=== PATIENT | male | born 1990 | race Caucasian/White ===

== ENCOUNTER 2017-02-19 23:34 | Emergency (ER) | payer MEDICAID ==
--- NOTE | 2017-02-19 23:52 | CPEKG ---
Heart Rate: 108 RR Interval: 556 P-R Interval: 148 QRSD Interval: 92 QT Interval: 324 QTC Interval: 435 P [place]: 39 QRS [place]: 16 T Wave [place]: 40 EKG Severity - OTHERWISE NORMAL ECG - EKG Impression: SINUS TACHYCARDIA Electronically Signed By: Matteo Kirkland 20-Feb-2017 07:14:39
--- NOTE | 2017-02-19 23:54 | EDPHY ---
H & P Time Seen by Provider: 02/19/17 23:54 HPI/ROS: Chief Complaint: Palpitations, cocaine ingestion HPI: 27-year-old male who ingested cocaine this evening while involved in sexual relations inadvertently. Patient initially had a little bit of chest tightness and palpitations but feels this may have been secondary to anxiety. He has a history of cocaine abuse in the past and recognize the taste but has been clean for several years. He is concerned about relapsing. Currently is feeling anxious and regretful. No chest pain currently. No fevers or chills. No palpitations. No headache. No nausea or vomiting. ROS: 10 point Review of Systems is negative except as noted in the HPI. PMH: Bipolar disorder Medications: None Social History: No smoking, no alcohol, recovering addict Family History: non-contributory Physical Exam: Gen: Awake, Alert, anxious appearing HEENT: Nose: no rhinorrhea Eyes: PERRLA, EOMI Mouth: Moist mucosa Neck: Supple, no JVD Chest: nontender, lungs clear to auscultation Heart: S1, S2 normal, no murmur Abd: Soft, non-tender, no guarding Back: no CVA tenderness, no midline tenderness Ext: no edema, non-tender Skin: no rash Neuro: CN II-XII intact, Sensation grossly intact, Strength 5/5 in bilateral upper and lower extremities - Medical/Surgical History Hx Asthma: No Hx Chronic Respiratory Disease: No Hx Diabetes: No Hx Cardiac Disease: No Hx Renal Disease: No Hx Cirrhosis: No Hx Alcoholism: No Hx HIV/AIDS: No Hx Splenectomy or Spleen Trauma: No Other PMH: obesity. mood disorder - Social History Smoking Status: Never smoked Constitutional: Initial Vital Signs Temperature (C) 36.9 C 02/19/17 23:55 Heart Rate 112 H 02/19/17 23:55 Respiratory Rate 95 H 02/19/17 23:55 Blood Pressure 116/62 02/19/17 23:55 O2 Delivery Mode Room Air Allergies/Adverse Reactions: ziprasidone HCl [From Geodon] Allergy (Intermediate, Verified 04/13/16 10:45) tachycardia ziprasidone mesylate [From Geodon] Allergy (Intermediate, Verified 04/13/16 10: 45) tachycardia Home Medications: Medication Instructions Recorded Amoxicillin/Clavulanate Pot 875 mg PO BID #14 tab 04/13/16 [Augmentin 875Mg] lamoTRIgine [LamICTAL] 100 mg PO 04/13/16 Medical Decision Making - Diagnostics EKG Interpretation: ECG time 11:51 p.m.: Sinus tachycardia with a rate of 108, normal axis, normal intervals, no acute ST or T-wave changes. Impression: Sinus tachycardia ED Course/Re-evaluation: Patient cocaine ingestion with some sinus tachycardia. No ischemic changes. Does not have any chest pain. He is remorseful but otherwise has a benign exam. Will discharge with instructions follow up with primary care physician and cautions regarding further cocaine use. Departure - Departure Disposition: Home, Routine, Self-Care Clinical Impression: Cocaine abuse Condition: Good Instructions: Cocaine Abuse (ED), Anxiety (ED) Additional Instructions: Please continue to avoid cocaine and other substance abuse. Follow up with primary care physician in 2-3 days for for any concerns. Return emergency depart for increasing chest pain, palpitations, difficulty breathing, headache, fainting, or any other concerns. Referrals: NONE *PRIMARY CARE P,. [Primary Care Provider] - As per Instructions Annie Cobb MD [Medical Doctor] - As per Instructions
[2017-02-20 01:04] VITALS: BP 118/74; PULSE 90; RESP 16; TEMP 97.9; O2SAT 96
== END 2017-02-20 01:04 | disposition home or self-care (01) ==
LOC: EEVIPCON 23:34
DX: F14.10 Cocaine abuse, uncomplicated (principal)

== ENCOUNTER 2017-06-26 22:27 | Emergency (ER) | payer MEDICAID ==
[2017-06-26 22:37] VITALS: TEMP 98.4; O2SAT 96
--- NOTE | 2017-06-26 23:00 | EDPHY ---
H & P Stated Complaint: sudden onset of epigastric pain Time Seen by Provider: 06/26/17 22:56 HPI/ROS: Chief Complaint: Chest pain after coughing HPI: 27-year-old male has had upper respiratory symptoms for about a week clipping dry nonproductive cough, runny nose and sore throat. At about 4 o' clock this afternoon he had a coughing fit and then developed sharp pain in his lower central chest. Now it hurts more to sit up. Hurts to cough and take a deep breath. No shortness of breath. No fevers or chills. Cough has been nonproductive. No recent travel. No leg pain or swelling. ROS: 10 point Review of Systems is negative except as noted in the HPI. PMH: Bipolar disorder Medications: Claritin Allergies: Geodon Social History: No smoking, no alcohol, daily marijuana Family History: non-contributory Physical Exam: Gen: Awake, Alert, No Distress HEENT: Nose: no rhinorrhea Eyes: PERRLA, EOMI Mouth: Moist mucosa Neck: Supple, no JVD Chest: He has bilateral central costochondral tenderness to palpation reproducing his presenting complaint, lungs clear to auscultation Heart: S1, S2 normal, no murmur Abd: Soft, non-tender, no guarding Back: no CVA tenderness, no midline tenderness Ext: no edema, non-tender Skin: no rash Neuro: CN II-XII intact, Sensation grossly intact, Strength 5/5 in bilateral upper and lower extremities - Personal History Current Tetanus Diphtheria and Acellular Pertussis (TDAP): Yes - Medical/Surgical History Hx Asthma: No Hx Chronic Respiratory Disease: No Hx Diabetes: No Hx Cardiac Disease: No Hx Renal Disease: No Hx Cirrhosis: No Hx Alcoholism: No Hx HIV/AIDS: No Hx Splenectomy or Spleen Trauma: No Other PMH: bipolar - Social History Smoking Status: Never smoked Constitutional: Initial Vital Signs Temperature (C) 36.9 C 06/26/17 22:34 Heart Rate 100 06/26/17 22:34 Respiratory Rate 20 06/26/17 22:34 Blood Pressure 126/83 H 06/26/17 22:34 O2 Sat (%) 96 06/26/17 22:34 O2 Delivery Mode Room Air Allergies/Adverse Reactions: ziprasidone HCl [From Geodon] Allergy (Intermediate, Verified 04/13/16 10:45) tachycardia ziprasidone mesylate [From Geodon] Allergy (Intermediate, Verified 04/13/16 10: 45) tachycardia Home Medications: Medication Instructions Recorded Claritin 06/26/17 AZITHROMYCIN [Z-PACK] 250 mg PO DAILY #6 tab 06/27/17 Medical Decision Making - Diagnostics Imaging Results: Imaging Impressions Chest X-Ray 06/26/17 23:08 Impression: Patchy bilateral lower lobe infiltrate suspicious for early bronchopneumonia.. Imaging: I viewed and interpreted images myself ED Course/Re-evaluation: Chest x-ray shows bilateral patchy infiltrates consistent early bronchopneumonia. Symptoms are likely secondary to costochondritis after a coughing fit. No other acute pulmonary pathology at this time. Will start him on azithromycin for atypical coverage given the bilateral nature of the findings. He will follow up with primary care physician, return for worsening symptoms. - Data Points Medications Given: Discontinued Medications Azithromycin (Zithromax) 500 mg PO EDNOW ONE PRN Reason: Protocol Stop: 06/27/17 00:17 Last Admin: 06/27/17 00:19 Dose: 500 mg Departure - Departure Disposition: Home, Routine, Self-Care Clinical Impression: Pneumonia Condition: Good Instructions: Pneumonia (ED) Additional Instructions: Take your full course of antibiotics. Follow up with primary care physician in 2-3 days evaluation. Return to the emergency department for increasing pain, cough, shortness of breath, fevers, chills, or any other concerns. Referrals: DAMON BOSWELL [Other] - As per Instructions Prescriptions: AZITHROMYCIN [Z-PACK] 250 mg PO DAILY #6 tab
[2017-06-27] MEDS ORDERED: AZITHROMYCIN 250 MG TAB PO ONE (00:16)
[2017-06-27 00:29] VITALS: BP 123/89; PULSE 86; RESP 16
== END 2017-06-27 00:29 | disposition home or self-care (01) ==
DX: J18.9 Pneumonia, unspecified organism (principal)

== ENCOUNTER 2017-07-31 19:20 | Emergency (ER) | payer SELFPAY ==
[2017-07-31 19:27] VITALS: BP 127/75; PULSE 88; RESP 16; O2SAT 96
--- NOTE | 2017-07-31 19:57 | EDPHY ---
H & P Time Seen by Provider: 07/31/17 19:44 HPI/ROS: CHIEF COMPLAINT: Laceration left middle digit HISTORY OF PRESENT ILLNESS: 27-year-old [id number] male was using a new pocket knife when he was putting it back in the sheath and sustained accidental laceration of left middle digit distal phalanx radial aspect. Tetanus up-to-date. Occurred shortly prior to arrival. No paresthesia. No sensory or motor deficit. PHYSICAL EXAM (Prior to examination, patient consented to physical exam, hands were washed and my usual and customary physical exam procedures followed) 1) GENERAL: Well-developed, well-nourished, alert and oriented. Appears to be in no acute distress. 2) HEAD: Normocephalic 3) HEENT: sclera anicteric 4) LUNGS: Breathing comfortably. 5) SKIN: left middle digit distal phalanx radial aspect is 1.5 cm well- demarcated superficial laceration. 6) MUSCULOSKELETAL: flexor and extensor function intact at the MCP PIP DIP 7) NEUROLOGIC: Full sensation and two-point discrimination intact distally. Smoking Status: Never smoked Constitutional: Initial Vital Signs Heart Rate 88 07/31/17 19:24 Respiratory Rate 16 07/31/17 19:24 Blood Pressure 127/75 H 07/31/17 19:24 O2 Sat (%) 96 07/31/17 19:24 O2 Delivery Mode Room Air Allergies/Adverse Reactions: ziprasidone HCl [From Geodon] Allergy (Intermediate, Verified 04/13/16 10:45) tachycardia ziprasidone mesylate [From Geodon] Allergy (Intermediate, Verified 04/13/16 10: 45) tachycardia tree nut Allergy (Verified 07/31/17 19:24) Home Medications: Medication Instructions Recorded Claritin 06/26/17 MDM/Departure - MDM Procedures: Procedure: Laceration repair. I explained the indications, risks and benefits for both laceration repair and anesthetic administration. Verbal consent was obtained from the patient . The laceration on the left middle digit was anesthetized using 0.5% bupivicaine without epinephrine . After anesthetic administered the patient was observed for a period of time and had no apparent adverse effects. The wound was cleaned , prepped, draped in normal sterile fashion and explored to its base. No foreign body seen, no foreign bodies palpated. There were no deep structures involved. No tendon injury was identified. The wound was repaired with 4 simple interrupted 5 O Prolene suture. The wound repair was simple. The procedure was performed by myself. Patient has been informed that scarring will occur, although efforts have been made to minimize this. ED Course/Re-evaluation: Care of patient under supervision of secondary supervising physician Dr Purvis . No signs of infection. - Depart Disposition: Home, Routine, Self-Care Clinical Impression: Laceration of left middle finger Qualifiers: Encounter type: initial encounter Damage to nail status: without damage Foreign body presence: without foreign body Qualified Code(s): S61.213A - Laceration without foreign body of left middle finger without damage to nail, initial encounter Condition: Good Instructions: Care For Your Stitches (ED), Laceration (ED) Additional Instructions: Return to the ER if you develop redness, swelling, discharge, warmth to the wound, red streaks going up your arm , or any other symptoms that concern you. Referrals: Return, to the ER in 10 days for suture removal [Other] - 08/10/17
== END 2017-07-31 20:20 | disposition home or self-care (01) ==
PROC: 0HQGXZZ Repair Left Hand Skin, External Approach (ICD-10-PCS; principal; 2017-07-31)
DX: S61.213A Laceration without foreign body of left middle finger without damage to nail, initial encounter (principal); W26.0XXA Contact with knife, initial encounter

== ENCOUNTER 2017-10-23 14:35 | Emergency (ER) | payer SELFPAY ==
[2017-10-23 14:53] VITALS: TEMP 98.1
--- NOTE | 2017-10-23 15:30 | EDPHY ---
General - History Smoking Status: Never smoked Narrative: CHIEF COMPLAINT: Fall x2, head injury, headache HISTORY OF PRESENT ILLNESS: Patient presents with complaints of fall and head injury x2. He says he was at a restaurant today and had 1 drink. He was standing up to move somewhere else when he tripped on and item just outside the door. He landed on the right side of his face. He may have had a brief loss of consciousness. He said he stood up and felt lightheaded. His friends helped him to go back inside. He sat down and had some food and drink. He stood up and again fell, landing on the right side of his face. Brief loss of conscious. He now has headache. He is not dizzy. He has not vomited. He has no visual disturbance. No chest or back pain. No abdominal pain. No back pain. No injuries to the extremities. He feels somewhat dehydrated and says that he had not eaten anything when he started to drink today. No other associated complaints or modifying factors. REVIEW OF SYSTEMS: Ten systems reviewed and are negative unless otherwise noted in the HPI PCP: None SPECIALISTS: None PAST MEDICAL HISTORY: No significant medical history. PAST SURGICAL HISTORY: No recent surgical history. SOCIAL HISTORY: Denies tobacco use. Occasional alcohol use. Occasional marijuana use. Works as a cook FAMILY HISTORY: Noncontributory EXAMINATION General Appearance: Alert, no distress Head: normocephalic, superficial abrasion over the right scientology. No depression. No Borrgeo sign. No raccoon eyes. Eyes: Pupils equal and round, no conjunctival pallor or injection. EOMs intact. ENT, Mouth: Mucous membranes moist. Airway widely patent. Neck: Normal inspection, supple, non-tender. No crepitus or deformity. Painless range of motion all planes. Respiratory: Lungs are clear to auscultation Cardiovascular: Regular rate and rhythm. No murmur Gastrointestinal: Obese Abdomen is soft and nontender. No distention or rigidity. Back: non-tender, no bony abnormalities Neurological: GCS 15. Cranial nerves 2-12 grossly intact A&O, nonfocal, strength is symmetric in all 4 limbs. No pronator drift. Normal finger-to- nose. Skin: Warm and dry, no rash. Superficial abrasion to the right temporal region. No laceration. No ecchymosis. Extremities: Nontender, no pedal edema. Symmetric range of motion Psychiatric: Mood and affect normal DIFFERENTIAL DIAGNOSES: Including but not limited to concussion, closed head injury, intracranial hemorrhage, cerebral edema, basilar skull fracture, temporal skull fracture MDM: 3:15 p.m. Two closed-head injuries within 1 hr with brief loss of consciousness, headache and lightheadedness in between. Patient does appear well with no neuro findings. I have ordered CT scans of the head cervical spine given the subsequent injuries with headache and loss of consciousness. He is in no acute distress. Vital signs stable. I have ordered orthostatic vital signs as well. 3:55 p.m. Notified by radiologist that the CT scans of the head and cervical spine are unremarkable for any acute findings. 4:05 p.m. Patient re-evaluated. Headache persists but he is feeling well. He would like to go home. He said he just wants some food and some rest. Patient has ambulated well in the emergency department without any assistance or difficulty. He has no neuro deficits. I discussed the negative CT scan findings. I discussed the nature of head injuries in concussion. I would like him to follow up with our concussion specialist Dr. Palafox. I do feel he is stable for discharge home with ED precautions as discussed. He is comfortable this plan. SUPERVISION: Patient was independently examined, but I discussed the case with my secondary supervising physician Dr. Simmons (Sandor Gautam) Medical Decision Making: I did not see this patient while he was in the emergency department. However his care was discussed with the PA while the patient was in the department. I agree with treatment plan and management (Gabe Simmons) - Diagnostics Imaging Results: Imaging Impressions Cervical Spine CT 10/23/17 15:14 Impression: No acute posttraumatic abnormality identified. If there is persistent pain or neurologic deficit, consider MRI and/or flexion and extension views if clinically indicated. Findings discussed with Linda Bloom, answering for Sandor Gautam 10/23/2017 at 15: 56. Head CT 10/23/17 15:14 Impression: No acute intracranial findings. Findings discussed with Linda Bloom, answering for Sandor Gautam 10/23/2017 at 15: 56. - Objective Vital Signs: Initial Vital Signs Temperature (C) 36.7 C 10/23/17 14:45 Heart Rate 77 10/23/17 14:45 Respiratory Rate 16 10/23/17 14:45 Blood Pressure 110/79 10/23/17 14:45 O2 Sat (%) 97 10/23/17 14:45 O2 Delivery Mode Room Air Allergies/Adverse Reactions: ziprasidone HCl [From Geodon] Allergy (Intermediate, Verified 10/23/17 14:48) tachycardia ziprasidone mesylate [From Geodon] Allergy (Intermediate, Verified 10/23/17 14: 48) tachycardia tree nut Allergy (Verified 07/31/17 19:24) Home Medications: Medication Instructions Recorded NK [No Known Home Meds] 10/23/17 Departure - Departure Disposition: Home, Routine, Self-Care Clinical Impression: Closed head injury Qualifiers: Encounter type: initial encounter Qualified Code(s): S09.90XA - Unspecified injury of head, initial encounter Condition: Good Instructions: Concussion (ED), Head Injury (ED), Driving Restrictions (ED) Additional Instructions: 1. Medications as discussed as needed 2. Contact the on-call physician as provided 3. ED precautions as discussed Referrals: Yudi Palafox MD [Medical Doctor] - As per Instructions
[2017-10-23 16:43] VITALS: BP 110/75; PULSE 87; RESP 18; O2SAT 95
== END 2017-10-23 16:43 | disposition home or self-care (01) ==
DX: S09.90XA Unspecified injury of head, initial encounter (principal); W01.198A Fall on same level from slipping, tripping and stumbling with subsequent striking against other object, initial encounter; Y92.511 Restaurant or cafe as the place of occurrence of the external cause

== ENCOUNTER 2018-04-02 10:08 | Emergency (ER) | payer MEDICAID ==
--- NOTE | 2018-04-02 10:39 | CPEKG ---
Heart Rate: 85 RR Interval: 706 P-R Interval: 164 QRSD Interval: 92 QT Interval: 348 QTC Interval: 414 P [place]: 41 QRS [place]: -7 T Wave [place]: 19 EKG Severity - NORMAL ECG - EKG Impression: SINUS RHYTHM Electronically Signed By: Awilda Hay 02-Apr-2018 15:02:21
[2018-04-02 11:34] LABS: PLATELET COUNT 323 10^3/uL (150-400)
--- NOTE | 2018-04-02 12:32 | EDPHY ---
General - History Smoking Status: Never smoked Time Seen by Provider: 04/02/18 12:23 Narrative: CHIEF COMPLAINT: Chest pain HISTORY OF PRESENT ILLNESS: Patient complains of chest pain that started 2-3 days ago. He said approximately 4 days ago he started noticing and described as "I think I was having a panic attack." He said this has been intermittent but now resolved. He now has ongoing pain. The left-sided pain is been present for 2 and half to 3 days. It is mild to moderate. Worse with inspiration. Does not radiate. No worse with exertion. Occasional shortness of breath. No trauma or injury. Worse with raising his left arm up. He has contacted his primary care physician , and they recommended that he present here for further care. No recent travel trauma or surgery. No history of venous thrombolic event. No exogenous testosterone use. REVIEW OF SYSTEMS: Ten systems reviewed and are negative unless otherwise noted in the HPI PCP: [facility] SPECIALISTS: None PAST MEDICAL HISTORY: Uncomplicated PAST SURGICAL HISTORY: No surgical history SOCIAL HISTORY: Occasional marijuana user. No tobacco or alcohol use. Lives and works here independently FAMILY HISTORY: Noncontributory EXAMINATION General Appearance: Alert, no distress Head: normocephalic, atraumatic Eyes: Pupils equal and round, no conjunctival pallor or injection ENT, Mouth: Mucous membranes moist Neck: Normal inspection, supple, non-tender Respiratory: Lungs are clear to auscultation Cardiovascular: Regular rate and rhythm. No murmur Gastrointestinal: Abdomen is soft and nontender Back: non-tender, no bony abnormalities Neurological: A&O, nonfocal, normal gait Skin: Warm and dry, no rash no petechiae or purpura Extremities: Nontender, no pedal edema Psychiatric: Mood and affect normal DIFFERENTIAL DIAGNOSES: Including but not limited to ACS, PE, pneumonitis anxiety, muscular strain, CAD MDM: 12:25 p.m. Left-sided pleuritic chest pain of 2 days duration. Nonexertional. Occasional shortness of breath. At time of examination, his troponin is negative, chest xray unremarkable. His vital signs are within normal limits and he is in no acute distress. I have ordered a D-dimer to rule out possibility of PE due to the pleuritic pain. 1:30 p.m. D-dimer is somewhat elevated at 0.68. Given this and his pleuritic pain, I have ordered CT angiography of the chest rule out PE. 2:30 p.m. Notified by radiologist Dr. Iraheta. CT scan of the chest reveals calcified granuloma but no acute findings. No PE. 2:45 p.m. Patient re-evaluated. I discussed the negative findings with the patient. I have discussed all this with Dr. Hay. We are all in agreement that the patient be discharged home stable condition. We discussed follow up with primary care physician. We discussed referral to Cardiology. We also discussed returning here for any worsening pain, exertional or radiating pain. He is comfortable this plan discharged stable condition. EKG interpretation: Dr. Hay Normal sinus rhythm. No ischemia or conduction delay SUPERVISION: Patient was independently examined, but I discussed the case with my secondary supervising physician Dr. Hay ([facility]) The patient was evaluated and managed by the physician child care assistant. I have reviewed this chart and I agree with the findings and plan of care as documented , as indicated by my signature. I am the secondary supervising physician. ( Awilda Hay) - Diagnostics EKG Interpretation: 12 lead EKG is interpreted in Trace master View by emergency department physician. (Awilda Hay) - Objective Vital Signs: Initial Vital Signs Temperature (C) 36.7 C 04/02/18 10:09 Heart Rate 82 04/02/18 10:09 Respiratory Rate 16 04/02/18 10:09 Blood Pressure 125/85 H 04/02/18 10:09 O2 Sat (%) 96 04/02/18 10:09 O2 Delivery Mode Room Air Allergies/Adverse Reactions: ziprasidone HCl [From Geodon] Allergy (Intermediate, Verified 10/23/17 14:48) tachycardia ziprasidone mesylate [From Geodon] Allergy (Intermediate, Verified 10/23/17 14: 48) tachycardia tree nut Allergy (Verified 07/31/17 19:24) Home Medications: Medication Instructions Recorded NK [No Known Home Meds] 10/23/17 Laboratory Results: Laboratory Results 04/02/18 10:40 04/02/18 10:40 Medications Given: Discontinued Medications Sodium Chloride (Ns) 1,000 mls @ 0 mls/hr IV EDNOW ONE; Wide Open PRN Reason: Protocol Stop: 04/02/18 13:27 Last Admin: 04/02/18 13:34 Dose: 1,000 mls Point of Care Test Results: Chemistry 04/02/18 10:49 POC Troponin I 0.01 ng/mL ng/mL (0.00-0.08) Departure - Departure Disposition: Home, Routine, Self-Care Clinical Impression: Acute chest pain Condition: Good Instructions: Chest Pain (ED) Additional Instructions: 1. Contact your primary care physician for outpatient follow-up 2. Contact the on-call spool worker as provided for outpatient follow-up 3. Return here for any return of your pain, radiating pain, sweating, nausea or vomiting Referrals: NONE *PRIMARY CARE P,. [Primary Care Provider] - As per Instructions Gomez Montano MD [Medical Doctor] - As per Instructions Stand Alone Forms: Work Excuse
[2018-04-02] MEDS ORDERED: NS 1,000 ML IV ONE (13:26)
[2018-04-02] MEDS ORDERED: IOPAMIDOL (ISOVUE 370) 100 ML BTL IV ONE (13:38)
[2018-04-02 14:59] VITALS: BP 107/78
== END 2018-04-02 14:59 | disposition home or self-care (01) ==
DX: R07.9 Chest pain, unspecified (principal); E86.9 Volume depletion, unspecified
CPT/HCPCS: 84484-PO; Q9967

== ENCOUNTER 2019-01-29 09:59 | Emergency (ER) | payer MEDICAID, OTHER ==
--- NOTE | 2019-01-29 10:50 | EDPHY ---
General - History Smoking Status: Current some day smoker Time Seen by Provider: 01/29/19 10:50 Narrative: CLINICAL IMPRESSION: Influenza a, vasovagal syncope ASSESSMENT/PLAN: Patient is a 29-year-old male with no significant medical history presents to the emergency department with fever, congestion, cough, nausea, vomiting, diarrhea and a syncopal episode this morning. An ECG was obtained on arrival, revealed sinus tachycardia without evidence of ischemia or significant arrhythmia. Influenza A positive. Workup in the emergency department was very otherwise reassuring including laboratory studies and negative chest x-ray. The patient was given IV fluids, Tylenol, Toradol and an albuterol neb with a market improvement of his symptoms. I suspect his syncopal episode is vasovagal in nature and secondary to dehydration and coming out of a hot shower. There were no findings to suggest sepsis, meningitis, pneumonia, vascular disease, CHF, arrhythmia (WPW, Bruggada Syndrome, prolonged QT, ventricular arrhythmia, SVT, bradyarrhythmia, or cardiac outflow obstruction- no murmur and not exertional in nature). Patient's symptoms have been going on longer than 48 hr, did not feel of benefit for Tamiflu. The patient is well established with his primary care provider, he will schedule follow-up. Return precautions discussed. ED COURSE: 1050: ECG reviewed which reveals sinus tachycardia at a rate of 109, no evidence of acute ischemia. Reviewed with Dr. Simmons. 1232: Case and results discussed with Dr. Simmons. 1315: On repeat examination the patient is well-appearing, he reports that he is feeling better. Discussed option of Tamiflu, patient declines as his symptoms have been ongoing for greater than 3 days. CHIEF COMPLAINT: Fever, runny nose, congestion, cough, nausea, vomiting, diarrhea and syncopal episode HPI: Patient is a 29-year-old male with no significant medical history presents to the emergency department with complaints of fever, congestion, cough, nausea, vomiting, diarrhea and a syncopal episode this morning. Patient reports on Monday evening he left work and started to feel like he was coming down with a cold, runny nose and congestion. Over the next 2 days he has developed worsening dry cough, sinus congestion, poor appetite, nausea, vomiting and this morning a syncopal episode. He has been experiencing generalized myalgias, denies any headache or stiff neck. Patient has been taking Mucinex, he has not been taking anything for his pain control. He believes that his emesis yesterday was secondary to a severe coughing fit just after he took his Mucinex. He has not had any further vomiting since. Patient reports this morning he had an episode of diarrhea, he did not quite make it to the bathroom. He took a hot shower to clean himself up, when he got out of the shower he started to feel lightheaded and had a syncopal episode. He believes he was out for just a brief period of time, denies any headache, head trauma, neck pain, back pain or other injury. No history of syncopal episodes. He denies any chest pain or shortness of breath. His cough is frequent and dry. He denies any abdominal pain. He denies any urinary symptoms to include dysuria , hematuria or frequency. Bowel movements are loose and frequent, denies melena or hematochezia. PMH: Denies Family History: Not contributory Social History: Light smoker, denies illicit drug use REVIEW OF SYSTEMS: All other systems negative Constitutional: Fever, decreased appetite. Eyes: No discharge, vision change ENT: Sinus congestion, denies ear pain or sore throat. Cardiovascular: No chest pain, no palpitations. Respiratory: Cough, denies shortness of breath. Gastrointestinal: Nausea and vomiting, denies abdominal pain. Diarrhea. Genitourinary: No hematuria, dysuria, flank pain. Musculoskeletal: Myalgias. No back pain, joint swelling, joint pain. Skin: No rashes, color change. Neurological: No headache, dizziness, weakness. PHYSICAL EXAM: General Appearance: Alert, obese, not toxic-appearing. HENT: Normocephalic, atraumatic. Bilateral external ears are normal. Bilateral tympanic membranes are normal with pearly waite reflex. Nares are clear, mucosa is pink. Oropharynx is clear however mildly dry, uvula is midline. There is no tonsillar enlargement or exudate. Eyes: PERRLA, EOMI. Conjunctiva pink, no pallor or injection. Neck: Supple, nontender, no lymphadenopathy, no midline pain, FROM, no meningismus- negative Kernig and negative Brudzinski. Respiratory: There are no retractions, globally diminished without wheeze or rhonchi. Cardiac: Mild tachycardia, no murmurs or gallops. Gastrointestinal: Abdomen is soft however obese, nontender, bowel sounds normal , no masses/hernia, no rigidity, guarding or focal peritoneal findings. Neurological: MENTAL STATUS: Patient is alert and oriented to person, place, time, and situation. Recent and remote memory are intact. Attention and concentration are normal. Found knowledge is appropriate to level of education. Mood and affect normal. SPEECH: Language including naming, repetition, comprehension, and spontaneous speech are normal. No dysarthria or dysphagia. CRANIAL NERVES: II: Visual sahu are full to confrontation. Vision is grossly intact. III, IV, : Pupils are equal, round, reactive to light. Extraocular eye movements are full and without nystagmus. V: Facial sensation is intact to touch symmetrically in all 3 divisions. VII: Face is symmetric at rest with no asymmetry of grimace or evidence of facial weakness. VIII: Hearing is intact bilaterally to finger rub. IX, X: Palate is midline and elevates symmetrically with intact cough/gag. XI: Sternocleidomastoid and trapezius strength is normal. XII: Tongue protrudes midline without atrophy or fasciculations. MOTOR: Normal bulk and tone symmetrically in the upper and lower extremities. Upper extremities: shoulder abduction, elbow flexion, elbow extension, flexion of fingers and finger abduction strength 5/5 bilaterally. Lower extremities: hip flexion, knee flexion and extension, plantar and dorsiflexion of foot, and great toe extension strength 5/5 bilaterally. No pronator drift. SENSORY: Sensation is intact to light touch and symmetric in the UE's in LE's bilaterally. Romberg is negative. COORDINATION: Fine motor and rapid alternating movements are normal. Finger to nose is normal bilaterally. [id number]-[id number] is normal bilaterally. No abnormal movements noted. There is no tremor at rest or with posture or action. GAIT/STATION: Casual, straightforward gait is normal. Patient can walk on toes and on heels. No gait instability. Skin: Warm, dry, no rashes. Musculoskeletal: Extremities are symmetrical, full range of motion, no tenderness, deformity, swelling, or erythema. Psychiatric: Mood and affect are normal, there is no agitation. MEDICAL DECISION MAKING: Patient was seen independently. Secondary supervising physician at time of evaluation was Dr. Simmons, he did not evaluate this patient. Diagnosis: Influenza a, syncope. New, requires workup Summary: Patient is febrile on arrival, he is tired appearing however nontoxic appearing , in no acute distress on arrival. Vital signs reviewed and remained stable, patient remained on hospital monitor and was observed for a period of time. BGL 93 with no evidence of hypoglycemia. CBC with no evidence of anemia (slightly hemo-concentrated supporting dehydration) or infectious process BMP with no metabolic abnormalities or evidence of renal insufficiency. ECG with no evidence if bradycardia, sinus pause, SVT or other conduction defect- reviewed by myself and Dr. Simmons. Negative orthostatic hypotension while in the ED. Patient was standing for prolonged period in a warm shower with little food and water throughout the day, suspect combination of dehydration and vasovagal response. There were no findings to suggest sepsis, vascular disease, CHF, arrhythmia (WPW, Bruggada Syndrome, prolonged QT, ventricular arrhythmia, SVT, bradyarrhythmia, or cardiac outflow obstruction- no murmur and not exertional in nature). There were no red flag symptoms, specifically, not exertional onset , no chest pain, dyspnea, low back pain, palpitations, severe headache, focal neurologic deficits, diplopia, ataxia, or dysarthria. I have a low clinical suspicion for other central nervous system etiology. On re-examination patient with grossly normal neurological exam, able to ambulate without difficulty. His heart rate and temperature improved. Patient is well established with his PCP and will schedule a follow-up appointment. Etiology of syncope including but not limited to vasovagal syncope, arrhythmia, dehydration, and blood loss. Clinical lab tests: ordered / reviewed. Independent visualization of images, tracing, or specimens: Yes. Decision to obtain medical records or history from someone other than the patient: No Review / Summarize previous medical records: Yes Discussed patient with another provider: Yes, Dr. Simmons Patient Progress: Stable, discharge. (Mag Granados) Medical Decision Making: I did not see this patient while he was in the emergency department. However his care was discussed with the PA while the patient was in the department. I agree with treatment plan and management (Gabe Simmons) - Diagnostics EKG Interpretation: EKG interpreted by me shows sinus tachycardia normal interval and axis. QRS is normal there is no significant ST elevation or depression. No arrhythmia. The rate is 109 (Gabe Simmons) Imaging Results: Imaging Impressions Chest X-Ray 01/29/19 11:02 Impression: Mild airways disease and minimal left basilar atelectasis. No pneumonia or effusion. - Objective Vital Signs: Initial Vital Signs Temperature (C) 38.1 C 01/29/19 10:08 Heart Rate 114 H 01/29/19 10:08 Respiratory Rate 18 01/29/19 10:08 Blood Pressure 123/98 H 01/29/19 10:08 O2 Sat (%) 97 01/29/19 10:08 O2 Delivery Mode Room Air Allergies/Adverse Reactions: ziprasidone HCl [From Geodon] Allergy (Intermediate, Verified 10/23/17 14:48) tachycardia ziprasidone mesylate [From Geodon] Allergy (Intermediate, Verified 10/23/17 14: 48) tachycardia tree nut Allergy (Verified 07/31/17 19:24) Home Medications: Medication Instructions Recorded Albuterol [Proventil Inhaler HFA 1 - 2 puffs IH Q4H #1 mdi 01/29/19 (*)] Laboratory Results: Laboratory Results 01/29/19 10:30 01/29/19 10:30 01/29/19 01/29/19 01/29/19 11:15 10:30 10:30 WBC 6.97 10^3/uL 10^3/uL (3.80-9.50) RBC 6.24 10^6/uL 10^6/uL (4.40-6.38) Hgb 17.9 g/dL H g/dL (13.7-17.5) Hct 52.6 % H % (40.0-51.0) MCV 84.3 fL fL (81.5-99.8) MCH 28.7 pg pg (27.9-34.1) MCHC 34.0 g/dL g/dL (32.4-36.7) RDW 12.9 % % (11.5-15.2) Plt Count 252 10^3/uL 10^3/uL (150-400) MPV 10.0 fL fL (8.7-11.7) Neut % (Auto) 73.5 % % (39.3-74.2) Lymph % (Auto) 15.5 % % (15.0-45.0) [place] % (Auto) 10.3 % % (4.5-13.0) Eos % (Auto) 0.0 % L % (0.6-7.6) Baso % (Auto) 0.4 % % (0.3-1.7) Nucleat RBC Rel Count 0.0 % % (0.0-0.2) Absolute Neuts (auto) 5.12 10^3/uL 10^3/uL (1.70-6.50) Absolute Lymphs (auto) 1.08 10^3/uL 10^3/uL (1.00-3.00) Absolute Monos (auto) 0.72 10^3/uL 10^3/uL (0.30-0.80) Absolute Eos (auto) 0.00 10^3/uL L 10^3/uL (0.03-0.40) Absolute Basos (auto) 0.03 10^3/uL 10^3/uL (0.02-0.10) Absolute Nucleated RBC 0.00 10^3/uL 10^3/uL (0-0.01) Immature Gran % 0.3 % % (0.0-1.1) Immature Gran # 0.02 10^3/uL 10^3/uL (0.00-0.10) VBG Lactic Acid Sodium 137 mEq/L mEq/L (135-145) Potassium 3.8 mEq/L mEq/L (3.5-5.2) Chloride 101 mEq/L mEq/L (97-110) Carbon Dioxide 20 mEq/l L mEq/l (22-31) Anion Gap 16 mEq/L H mEq/L (6-14) BUN 10 mg/dL mg/dL (7-23) Creatinine 1.0 mg/dL mg/dL (0.7-1.3) Estimated GFR > 60 Glucose 93 mg/dL mg/dL (70-100) Calcium 9.6 mg/dL mg/dL (8.5-10.4) Total Bilirubin 0.6 mg/dL mg/dL (0.1-1.4) Conjugated Bilirubin 0.4 mg/dL mg/dL (0.0-0.5) Unconjugated Bilirubin 0.2 mg/dL mg/dL (0.0-1.1) AST 34 IU/L IU/L (17-59) ALT 39 IU/L IU/L (21-72) Alkaline Phosphatase 111 IU/L IU/L (38-126) Total Protein 7.9 g/dL g/dL (6.3-8.2) Albumin 4.6 g/dL g/dL (3.5-5.0) Lipase 55 IU/L IU/L (23-300) Nasal Influenza A PCR FLU A DETECTED H (NEGATIVE) Nasal Influenza B PCR NEGATIVE FOR FLU B (NEGATIVE) 01/29/19 10:30 WBC RBC Hgb Hct MCV MCH MCHC RDW Plt Count MPV Neut % (Auto) Lymph % (Auto) [place] % (Auto) Eos % (Auto) Baso % (Auto) Nucleat RBC Rel Count Absolute Neuts (auto) Absolute Lymphs (auto) Absolute Monos (auto) Absolute Eos (auto) Absolute Basos (auto) Absolute Nucleated RBC Immature Gran % Immature Gran # VBG Lactic Acid 1.6 mmol/L mmol/L (0.7-2.1) Sodium Potassium Chloride Carbon Dioxide Anion Gap BUN Creatinine Estimated GFR Glucose Calcium Total Bilirubin Conjugated Bilirubin Unconjugated Bilirubin AST ALT Alkaline Phosphatase Total Protein Albumin Lipase Nasal Influenza A PCR Nasal Influenza B PCR Medications Given: Discontinued Medications Acetaminophen (Tylenol) 1,000 mg PO EDNOW ONE Stop: 01/29/19 11:03 Last Admin: 01/29/19 11:07 Dose: 1,000 mg Albuterol (Proventil Neb) 3 ml IH EDNOW ONE Stop: 01/29/19 11:55 Last Admin: 01/29/19 13:07 Dose: 3 ml Sodium Chloride (Ns) 1,000 mls @ 0 mls/hr IV ONCE ONE PRN Reason: Wide Open Stop: 01/29/19 11:03 Last Admin: 01/29/19 11:08 Dose: 1,000 mls Ketorolac Tromethamine (Toradol) 30 mg IVP EDNOW ONE Stop: 01/29/19 12:28 Last Admin: 01/29/19 13:03 Dose: 30 mg Departure - Departure Disposition: Home, Routine, Self-Care Clinical Impression: Influenza A Condition: Good Instructions: Influenza (ED) Additional Instructions: DISCHARGE INSTRUCTIONS FROM YOUR PROVIDER Thank you for visiting our emergency department today. Please keep in mind that discharge from the emergency department does not mean that there is nothing wrong - it simply means that we have not identified an emergency condition that requires further evaluation or treatment in the hospital. You should always plan to follow up with primary care for re-evaluation of your condition in the next 2-3 days. You have been diagnosed with influenza, please do not return to work until your are no longer having fevers. Rest, push non-diuretic, non-caffeinated fluids, consume a healthy diet, all to help support your immune system fight infection. Consider running a coolmist humidifier in the bedroom. Consider warm salt water gargles for sore throat. Consider over the counter saline nasal washes ie: Neilmed sinus rinse, [place] or [place]. Consider over the counter Mucinex for congestion and/or cough as directed. Albuterol inhaler as needed for severe cough. For pain control: You may take Tylenol, I recommend 500-1000 mg every 6-8 hours as needed. Take with food and a full glass of water. Stop taking if this is upsetting you stomach. Do not exceed 4000 mg in a 24 hr period. You may also take ibuprofen, recommend 400 mg every 6 hr. Take with food and a full glass of water. Stop taking if this upsets your stomach. Do not exceed 2400 mg in a 24 hr period. As discussed, in the setting of a viral illness, you may develop a secondary bacterial infection, requiring an antibiotic. Watch for new or changing symptoms ie: new ear pain or drainage, increasing cough, shortness of breath, high fever, or any other concerning symptoms. Schedule a follow-up appointment with your primary care physician in the next 2- 3 days for re-evaluation, sooner for any new concerns. Return for high fever, shaking chills, severe headache, facial redness or swelling, drainage from your ears, difficulty breathing or swallowing, throat tightness, drooling, change in voice, inability to open your mouth normally, severe neck pain, neck stiffness, shortness of breath, wheezing, noisy breathing , coughing up blood, chest pain, vomiting, diarrhea, bloody stools, decreased urine output or other concerns for dehydration, bloody urine, rash, dizziness, weakness, fainting, or for any other new, worsening or worrisome symptoms. People present with illnesses and injuries in different ways, and it is always possible that we have missed something. Again, thank you for choosing our emergency department. We hope that you feel better. Referrals: Ajay Mueller MD [Primary Care Provider] - 1-2 days without fail Stand Alone Forms: Work Excuse Prescriptions: Albuterol [Proventil Inhaler HFA (*)] 1 - 2 puffs IH Q4H #1 mdi
[2019-01-29] MEDS ORDERED: NS 1,000 ML IV ONE (11:02)
[2019-01-29] MEDS ORDERED: ACETAMINOPHEN 500 MG TAB PO ONE (11:02)
[2019-01-29 11:11] LABS: PLATELET COUNT 252 10^3/uL (150-400)
[2019-01-29] MEDS ORDERED: ALBUTEROL 3 ML DEYVIAL IH ONE (11:54)
[2019-01-29] MEDS ORDERED: KETOROLAC 30 MG/1 ML SDV IVP ONE (12:27)
[2019-01-29 13:48] VITALS: BP 133/89
--- NOTE | 2019-01-29 15:48 | CPEKG ---
Test Reason : OPEN Blood Pressure : / mmHG Vent. Rate : 109 BPM Atrial Rate : 109 BPM P-R Int : 134 ms QRS Dur : 089 ms QT Int : 315 ms P-R-T Axes : 051 001 007 degrees QTc Int : 425 ms Sinus tachycardia Confirmed by Gabe Simmons ([id number]) on 01/29/2019 3:48:32 PM Referred By: PHYSICIAN ED Confirmed By:Gabe Simmons
== END 2019-01-29 14:09 | disposition home or self-care (01) ==
DX: J10.1 Influenza due to other identified influenza virus with other respiratory manifestations (principal)
CPT/HCPCS: 96374; J1885; J7613